=== PATIENT | female | born 1975 | race Caucasian/White ===

== ENCOUNTER 2024-07-20 07:29 | Emergency (ER) | payer OTHER, SELFPAY ==
--- NOTE | ~2024-07-20 | XR_ITS ---
Left wrist Technique: PA, oblique, lateral, and ulnar deviation views were obtained. Clinical History: Pain Findings: No acute fracture or dislocation is seen. Osseous alignment is anatomic. Joint spaces are p reserved. Soft tissues are unremarkable. Impression: Unremarkable left wrist radiographs. Reviewed, dictated and finalized at location . TRUCKER Impression: Unremarkable left wrist radiographs.
--- NOTE | ~2024-07-20 | XR_ITS ---
Left elbow Technique: AP, oblique, and lateral views were obtained. Clinical History: Pain Findings: There is displacement of fat pads, compatible elbow joint effusion. This is suspicious for underlying medical renal head fracture.. Impression: Suspected occult radial head fracture with associated elbow joint effusion. Reviewed, dictated and finalized at [facility]. ETING RESEARCH ANALYST Impression: Suspected occult radial head fracture with associated elbow joint effusion.
[2024-07-20 07:32] VITALS: BP 158/94; PULSE 86; RESP 15; TEMP 36.3; O2SAT 100
--- OUTSIDE RECORDS SUMMARY | 2024-07-20 10:02 | XMS_ITS | Patient Health Summary ---
Author Organization [facility] Address [address] [place] [address] Care Team Providers Care Script Editor Name Role Phone Akash Diop MD Primary Care Provider [phone] Todd Avila MD Unavailable Note from [facility],non-owned Affiliates and Associated Physician Practices is amultiple site organization consisting of ambulatory clinics and hospital sitesin [place], [place], [place] and [place]. This disclosure is being madepursuant to the Care Everywhere program and may not contain all information available regarding this patient. Last updated 18.[facility] Allergies * Sulfa Drugs(Palpitations) -Low Criticality Medications * Be aware that medications may not be up to date on this document. Alwaysverify current medications with the patient. * metFORMIN (GLUCOPHAGE) 500 MG tablet Take 500 mg by mouth once daily. * VITAMINS PO Take 1 Tab by mouth once daily. * famotidine (PEPCID) 20 MG tablet Take 20 mg by mouth as needed. * ALBUTEROL SULFATE IN Inhale 1 Puff by mouth as needed. * hydrocodone-acetaminophen (NORCO) 5-325 MG tablet(Started 04/06/2013) Take 1-2 Tabs by mouth every 4 hours as needed. * ibuprofen (MOTRIN) 600 MG tablet(Started 04/06/2013) Take 1 Tab by mouth every 6 hours. 1 refill left * phentermine (ADIPEX-P) 37.5 MG capsule(Started 05/06/2020) Take 37.5 mg by mouth once daily * metFORMIN (GLUCOPHAGE) 500 MG tablet Take 500 mg by mouth once daily * VIENVA 0.1-20 MG-MCG tablet(Started 02/28/2020) Take 1 tablet by mouth once daily * DULoxetine (CYMBALTA) 60 MG capsule(Started 05/15/2020) Take 60 mg by mouth once daily Active Problems Problem Noted Date Diagnosed Date Neoplasm of uncertain behavior of skin 1 Varicose veins of right lower extremity 06/06/20 20 Adiposity 11/08/2013 Asthma 11/08/2013 Atopic rhinitis 11/08/2013 Eczema 11/08/2013 Hyperlipidemia 11/08/2013 Polycystic ovaries 11/08/2013 Supervision of other high-risk 013 Low lying placenta without hemorrhage, antepartu m 03/03/2013 Immunizations * INFLUENZA VACCINE(Given 04/14/2020) * Rho D Immune Globulin(Given 04/04/2013, 04/04/2013) * TDAP (7yrs+)(Given 04/05/2013) Social History Tobacco Use Types Packs/Day Years Used Date Smoking Tobacco: Never Smokeless Tobacco: Never Tobacco Cessation:Counseling Given: Yes Alcohol Use Standard Drinks/Week Comments Yes 0 (1 standard drink = 0.6 oz pur e alcohol) socially Sex and Gender Information Value Date Recorded Sex Assigned at Not on file Gender Identity Not on file Sexual Orientation Not on file Last Filed Vital Signs Vital Sign Reading Time Taken Comments Blood Pressure 137/87 04/06/2013 7:55 AM CDT Pulse 76 04/06/2013 7:55 AM CDT Temperature 36.4 ??C (97.5 ??F) 08/11/2020 3:17 PM CS T Respiratory Rate 18 04/06/2013 7:55 AM CDT Oxygen Saturation 100% 04/05/2013 3:25 PM CDT Inhaled Oxygen Concentration - - Weight 99.8 kg (220 lb) 04/02/2013 10:04 PM CDT Height 170.2 cm (5' 7 ) 04/02/2013 10:04 PM CDT Body Mass Index 34.46 04/02/2013 10:04 PM CDT Procedures * SD TANGNTL BX SKIN SINGLE LES(Performed 08/11/2020) Performed for Neoplasm of uncertain behavior of skin * SD TANGNTL BX SKIN EA SEP ADDL(Performed 08/11/2020) Performed for Neoplasm of uncertain behavior of skin * DERMATOPATHOLOGY(Performed 08/11/2020) Performed for Neoplasm of uncertain behavior of skin * SD TANGNTL BX SKIN SINGLE LES(Performed 06/04/2020) Performed for Neoplasm of uncertain behavior of skin * SD TANGNTL BX SKIN EA SEP ADDL(Performed 06/04/2020) Performed for Neoplasm of uncertain behavior of skin * DERMATOPATHOLOGY(Performed 06/04/2020) Performed for Neoplasm of uncertain behavior of skin * SECTION (EMERGENCY)(Performed 04/23/2013) * LAB RESULTS ORDER(Performed 04/07/2013) * PATHOLOGY/CYTOLOGY REPORT ORDER(Performed 04/05/2013) * RH IMMUNE GLOBULIN WORKUP PANEL(Performed 04/04/2013) * KLEIHAUER BETKE STAIN(Performed 04/04/2013) * HGB HCT PANEL(Performed 04/04/2013) * CROSSMATCH RBC LEUKOREDUCED(Performed 04/03/2013) * CROSSMATCH RBC LEUKOREDUCED(Performed 04/03/2013) * OBTAIN CONSENT FOR TRANSFUSION(Performed 04/03/2013) * HGB HCT PANEL(Performed 04/03/2013) * CBC W AUTO DIFFERENTIAL(Performed 04/03/2013) * XR ABDOMEN KUB(Performed 04/03/2013) Performed for Low lying placenta without hemorrhage, antepartum ([facility]) * PATHOLOGY TISSUE EXAM (STL)(Performed 04/03/2013) * EPIDURAL BLOCK(Performed 04/03/2013) * URINALYSIS REFLEX TO MICROSCOPIC NO CULTURE(Performed 04/02/2013) Performed for Low lying placenta without hemorrhage, antepartum ([facility]) * TYPE + SCREEN PANEL(Performed 04/02/2013) Performed for Low lying placenta without hemorrhage, antepartum ([facility]) * ANTIBODY IDENTIFICATION(Performed 04/02/2013) Performed for Low lying placenta without hemorrhage, antepartum ([facility]) * CBC W AUTO DIFFERENTIAL(Performed 04/02/2013) Performed for Low lying placenta without hemorrhage, antepartum ([facility]) * IMAGING/RADIOLOGY/XRAY RESULTS ORDER(Performed 03/18/2013) * SONOGRAM - LIMITED(Performed 03/18/2013) Performed for Supervision of other high-risk ([facility]), Placenta previa without hemorrhage, antepartum ([facility]) * SONOGRAM - COMPLETE(Performed 03/03/2013) Performed for Placenta previa without hemorrhage, antepartum ([facility]), Supervision of other high-risk ([facility]) * URINALYSIS REFLEX MICROSCOPIC REFLEX CULTURE(Performed 11/22/2012) Performed for with one fetus (HCC) * CULTURE URINE(Performed 11/22/2012) Performed for with one fetus (HCC) * PATHOLOGY/CYTOLOGY REPORT ORDER(Performed 03/11/2012) * GROSS + MICRO EXAM(Performed 08/02/2011) * GROSS + MICRO EXAM(Performed 08/02/2011) * US OB TRANSVAGINAL DOPPLER(Performed 07/31/2011) Performed for Missed (HCC) * HEPATIC FUNCTION PANEL(Performed 05/23/2011) Performed for Abdominal pain, periumbilic * AMYLASE BLOOD(Performed 05/23/2011) Performed for Abdominal pain, periumbilic * LIPASE BLOOD(Performed 05/23/2011) Performed for Abdominal pain, periumbilic * GROSS + MICRO EXAM(Performed 08/08/2010) * GROSS + MICRO EXAM(Performed 08/08/2010) Results * SD TANGNTL BX SKIN EA SEP ADDL, SD TANGNTL BX SKIN SINGLE LES (08/11/2020 4:19 PM GEOPHYSICAL LABORATORY SUPERVISOR) Narrative Sugey Alicia MD - 08/11/2020 4:19 PM GEOPHYSICAL LABORATORY SUPERVISOR Rupal Resendez MD ? 08/11/2020 ??4:19 PM Risks, benefits and alternatives to shave biopsy were discussed with the patient. Verbal consent obtained. Locations: A) right mid upper back, B) right shoulder Ddx: Nevi Skin prep: Alcohol Anesthesia: 1% lidocaine with epinephrine Hemostasis: Aluminum Chloride Dressing and wound care discussed. Patient agrees to phone call for results and message if not available. Rupal Resendez MD Dermatology Resident, PGY-2 [facility], Department of Dermatology Sugey Alicia MD PROCEDURE/MINOR SURG ICAL ORDERABLES * DERMATOPATHOLOGY (Specimen Count = 2) (08/11/2020 12:00 AM GEOPHYSICAL LABORATORY SUPERVISOR) Only the most recent of2 resultswithin the time period is included. Case Report Dermatopathology Report ? Case: [id number] ? Authorizing Provider: ??Sugey Alicia MD ? Collected: ? 08/11/2020 12:00 AM ? Ordering Location: ? [facility] ?Received: ?08/12/2020 10:42 AM ? Dermatology ? Pathologist: ? Carlene Flores MD ? Specimens: ?? A) - Skin, right mid upper back ? B) - Skin, right shoulder ? 1 11:58 AM [facility] Final Diagnosis Specimen A. SKIN, right mid upper back: INTRADERMAL MELANOCYTIC NEVUS WITH CONGENITAL FEATURES (D22.9) Specimen B. SKIN, right shoulder: INTRADERMAL MELANOCYTIC NEVUS WITH CONGENITAL FEATURES (D22.9) 1 11:58 AM [facility] Clinical History A-B: Nevus. 11:58 AM [facility] Gross Description Specimen A: Received is one formalin filled container labeled with the patient's name and designated right mid upper back. The specimen consists of a shave biopsy measuring [id number]. Jar 0. Specimen B: Received is one formalin filled container labeled with the patient's name and designated right shoulder. The specimen consists of a shave biopsy measuring [id number]. Jar 0. 11:58 AM [facility] Microscopic Description Specimen A. SKIN, right mid upper back: There are nests of cytologically bland melanocytes within the dermis. Some of these melanocytes are concentrated around blood vessels and adnexal structures. Specimen B. SKIN, right shoulder: There are nests of cytologically bland melanocytes within the dermis. Some of these melanocytes are concentrated around blood vessels and adnexal structures. 11:58 AM [facility] Disclaimer An external and internal positive and negative controls are appropriate for the histochemical, immunohistochemical and immunofluorescence stain(s) in this case (if any), except where stated explicitly. The performance characteristics of the stain(s) cited in this report were developed and its performance characteristic determined by the Dermatopathology Laboratory at [facility], directed by Dr. Britton Flores. These tests need not be, and therefore are not, approved by the [place] Food and Drug Administration. The tests are used for clinical purposes. Billing Codes Specimen Charges Stain Charges 98872 [id number] 1 1 11:58 AM [facility] Embedded Images 11:58 AM [facility] Pathology/Cytology TISSUE SPECIMEN FROM SKIN / Unknown 08/11/2020 08/12/2020 10:42 AM GEOPHYSICAL LABORATORY SUPERVISOR Miscellaneous samples (specimen) TISSUE SPECIMEN FROM SKIN / Unknown 08/11/2020 08/12/2020 10:42 AM GEOPHYSICAL LABORATORY SUPERVISOR Sugey Alicia MD LAB - PATHOLOGY/CYTO LOGY ORDERABLES DERMATOPATHOLOGY LABORATORY [facility] - Department of Dermatology [address] [phone] * SD TANGNTL BX SKIN EA SEP ADDL, SD TANGNTL BX SKIN SINGLE LES (06/04/2020 3:09 PM GEOPHYSICAL LABORATORY SUPERVISOR) Narrative Sugey Alicia MD - 06/04/2020 3:09 PM GEOPHYSICAL LABORATORY SUPERVISOR Sugey Alicia MD ? 06/04/2020 ??3:09 PM Shave Biopsy: Pre-procedure Diagnosis: nevi Post_procedure Diagnosis: same Estimated Blood Loss: <1cc Findings: None Complications: None Specimens: 2 Verbal ??informed consent was obtained after discussing alternatives, risks including pain, bleeding, infection, recurrence and scarring. The biopsy site(s) was sterilely prepped with alcohol, which was allowed to dry completely, then locally infiltrated with 1% lidocaine with epinephrine, 3 cc total per site. A shave biopsy/biopsies was/were obtained using a Dermablade and the specimen(s) was/were sent to dermatopathology. Aluminum Chloride was used for hemostasis. Vaseline ointment and a clean dressing were applied. The patient tolerated the procedure well without complications. Verbal and written wound care instructions were given. Sugey Alicia MD Sugey Alicia MD PROCEDURE/MINOR SURG ICAL ORDERABLES * LAB RESULTS ORDER (04/07/2013 2:45 PM CDT) Narrative 04/07/2013 2:45 PM CDT Ordered by an unspecified provider. Transcriptions Document, Scanned - 04/07/2013 2:45 PM CDT Scanned Document LAB - THERAPEUTIC DR BLACK MONITORING ORDERABLES * PATHOLOGY/CYTOLOGY REPORT ORDER (04/05/2013 4:44 PM CDT) Only the most recent of2 resultswithin the time period is included. Narrative 04/05/2013 4:44 PM CDT Ordered by an unspecified provider. Transcriptions Document, Scanned - 04/05/2013 4:44 PM CDT Scanned Document LAB - PATHOLOGY/CYTO LOGY ORDERABLES * (ABNORMAL) KLEIHAUER BETKE STAIN (04/04/2013 6:38 AM CDT) Number Cells Counted 3 04/04/2013 3:42 PM CDT [facility] /Maternal Ratio 0.03728(H) <=0 04/04/2013 3:42 PM CDT [facility] Blood Bank BLOOD SPECIMEN / Unknown Lab Venipuncture / Unknown 04/04/2013 6:38 AM CDT 04/04/2013 11:57 AM CDT Narrative [facility] - 04/04/2013 3:42 PM CDT ?RHOGAM DOSAGE CHART F/A ratio ?FMH Range (ml) ? 300 ug vial dose ?0 - 0.0029 ? 0 - 14.9 ? 1 0.003 - 0.0089 ?15.0 - 44.9 ? 2 0.009 - 0.0149 ?45.0 - 74.9 ? 3 0.015 - 0.0209 ?75.0 - 104.9 ?4 0.021 - 0.0269 ? 105.0 - 134.9 ?5 0.027 - 0.0329 ? 135.0 - 164.9 ?6 0.033 - 0.0389 ? 165.0 - 194.9 ?7 0.039 - 0.0449 ? 195.0 - 224.9 ?8 0.045 - 0.0509 ? 225.0 - 254.9 ?9 0.051 - 0.0569 ? 255.0 - 284.9 ? 10 0.057 - 0.0629 ? 285.0 - 314.9 ? 11 0.063 - 0.0689 ? 315.0 - 344.9 ? 12 0.069 - 0.0749 ? 345.0 - 374.9 ? 13 0.075 - 0.0809 ? 375.0 - 404.9 ? 14 0.081 - 0.0869 ? 405.0 - 434.9 ? 15 0.087 - 0.0929 ? 435.0 - 464.9 ? 16 0.093 - 0.0989 ? 465.0 - 494.5 ? 17 0.099 - 0.100 ?495.0 - 500.0 ? 18 Please note: No Rhogam is recommended for mothers who are Rh positive. Jose A Hirsch MD LAB - HEMATOLOGY ORD ERABLES [facility] [address] [place], [place] [id number] * RH IMMUNE GLOBULIN WORKUP PANEL (04/04/2013 6:38 AM CDT) [facility] # Rhlg vials needed See KB results. May require multiple vials. 04/04/2013 11:55 AM CDT [facility] Blood Bank BLOOD SPECIMEN / Unknown Lab Venipuncture / Unknown 04/04/2013 6:38 AM CDT 04/04/2013 6:55 AM CDT Jose A Hirsch MD LAB - BLOOD BANK ORD ERABLES [facility] * SCREEN (04/04/2013 6:38 AM CDT) Blood Bank BLOOD SPECIMEN / Unknown 04/04/2013 6:38 AM CDT 04/04/2013 6:55 AM CDT Jose A Hirsch MD LAB - BLOOD BANK ORD ERABLES [facility] * (ABNORMAL) HGB HCT PANEL (04/04/2013 6:38 AM CDT) Only the most recent of2 resultswithin the time period is included. Hemoglobin 7.9(L) 12.0 - 15.6 g/dL 04/04/2013 7:00 AM CDT [facility] Hematocrit 24.0(L) 35.9 - 45.5 % 04/04/2013 7:00 AM CDT [facility] Blood BLOOD SPECIMEN / Unknown Lab Venipuncture / Unknown 04/04/2013 6:38 AM CDT 04/04/2013 6:55 AM CDT Jose A Hirsch MD LAB - HEMATOLOGY ORD ERABLES [facility] [address] [place] [address] * TRANSFUSE RED BLOOD CELL UNIT(S) (04/04/2013 1:00 AM CDT) Jose A Hirsch MD NURSING - BLOOD PROD TRANSFUSION * TRANSFUSE RED BLOOD CELL UNIT(S) (04/03/2013 10:02 PM CDT) Jose A Hirsch MD NURSING - BLOOD PROD TRANSFUSION * CROSSMATCH RBC (04/03/2013 6:36 PM CDT) Only the most recent of2 resultswithin the time period is included. Unit Donor # [id number] -Y 04/03/2013 11:58 PM CDT [facility] Product Code E0424 04/03/2013 11:58 PM CDT [facility] Unit Description E0424 RBC, LR, -5 04/03/2013 11:58 PM CDT [facility] ABO Donor Type B 04/03/2013 11:58 PM CDT [facility] Rh Type Unit NEG 04/03/2013 11:58 PM CDT [facility] Crossmatch Interpretation Compatible 04/03/2013 11:58 PM CDT [facility] Unit Status Transfused Unit 04/03/2013 11:58 PM CDT [facility] Blood Bank BLOOD SPECIMEN / Unknown 04/03/2013 6:36 PM CDT 04/03/2013 6:46 PM CDT Jose A Hirsch MD LAB - BLOOD BANK ORD ERABLES [facility] * (ABNORMAL) CBC W AUTO DIFFERENTIAL (04/03/2013 12:08 PM CDT) Only the most recent of2 resultswithin the time period is included. WBC 11.6(H) 4.4 - 10.7 x10^9/L 04/03/2013 12:18 PM CDT [facility] RBC 2.87(L) 3.80 - 5.20 x10^12/L 04/03/2013 12:18 PM CDT [facility] Hemoglobin 7.5(L) 12.0 - 15.6 g/dL 04/03/2013 12:18 PM CDT [facility] Hematocrit 23.2(L) 35.9 - 45.5 % 04/03/2013 12:18 PM CDT [facility] MCV 80.8 80.7 - 98.3 fl 04/03/2013 12:18 PM CDT [facility] MCH 26.1(L) 26.7 - 34.0 pg 04/03/2013 12:18 PM CDT [facility] MCHC 32.3 30.8 - 35.9 gm/dL 04/03/2013 12:18 PM CDT [facility] Platelet Count 204 153 - 416 x10^9/L 04/03/2013 12:18 PM CDT [facility] RDW-CV 14.3 12.1 - 14.9 % 04/03/2013 12:18 PM CDT [facility] MPV 10.5 9.4 - 12.9 fl 04/03/2013 12:18 PM CDT [facility] Neutrophils % 84.4(H) 44.0 - 73.0 % 04/03/2013 12:18 PM CDT [facility] Lymphocytes % 7.5(L) 20.0 - 43.0 % 04/03/2013 12:18 PM CDT [facility] Monocytes % 7.5 5.0 - 13.0 % 04/03/2013 12:18 PM CDT [facility] Eosinophils % 0.1 0.0 - 6.0 % 04/03/2013 12:18 PM CDT [facility] Basophils % 0.2 0.0 - 2.0 % 04/03/2013 12:18 PM CDT [facility] Immature Granulocytes 0.3 0 - 1 % 04/03/2013 12:18 PM CDT [facility] Neutrophil Absolute 9.79(H) 2.01 - 7.14 x10^9/L 04/03/2013 12:18 PM CDT [facility] Lymphocytes Absolute 0.87(L) 1.07 - 3.94 x10^9/L 04/03/2013 12:18 PM CDT [facility] Monocytes Absolute 0.87 0.26 - 1.07 x10^9/L 04/03/2013 12:18 PM CDT [facility] Eosinophils Absolute 0.01 0 - 0.47 x10^9/L 04/03/2013 12:18 PM CDT [facility] Basophils Absolute 0.02 0 - 0.08 x10^9/L 04/03/2013 12:18 PM CDT [facility] nRBC Auto 0.0 /100 WBC 04/03/2013 12:18 PM CDT [facility] Blood BLOOD SPECIMEN / Unknown Lab Venipuncture / Unknown 04/03/2013 12:08 PM CDT 04/03/2013 12:16 PM CDT Soren Lopez MD LAB - HEMATOLOGY ORD ERABLES [facility] [address] [place] [place] [address] * XR ABDOMEN 1 VW (04/03/2013 8:27 AM CDT) Anatomical Region Laterality Modality Abdomen Radiographic Lindsay ging 04/03/2013 10:5 2 AM CDT Narrative 04/03/2013 1:17 PM CDT ABDOMEN (KUB) INDICATION: ??Abdominal pain, postop. FINDINGS: Frontal view of the abdomen without prior shows surgical clips overlying the lower pelvis. The bowel gas pattern is not obstructed. There is a small caliber lead superimposing the lower stomach and pelvis. There is otherwise no radiopaque density to suggest a foreign body. Edited by Vee Sotelo on 04/03/2013 10:55 AM Procedure Note Herber Mendoza MD - 04/03/2013 ABDOMEN (KUB) INDICATION: Abdominal pain, postop. FINDINGS: Frontal view of the abdomen without prior shows surgical clips overlying the lower pelvis. The bowel gas pattern is not obstructed. There is a small caliber lead superimposing the lower stomach and pelvis. There is otherwise no radiopaque density to suggest a foreign body. Edited by Vee Sotelo on 04/03/2013 10:55 AM Jose A Hirsch MD DIAGNOSTIC IMAGING O RDERABLES * GROSS + MICRO EXAM (STL) (04/03/2013 7:53 AM CDT) Case Report Surgical Pathology Report ? Case: [id number] ? -------- Authorizing Provider: ??Jose A Hirsch MD ? Ordering Provider: ?? Jose A Hirsch MD ? Ordering Location: ? [facility] ? Collected: ? 04/03/2013 ??7:53 AM ? Pathologist: ? Rob Birch MD ? Received: ?04/04/2013 ??7:47 AM ?Signed Out: ?04/07/2013 ??2:24 PM (Final) ? Specimen: ?Placenta ? 04/07/2013 2:24 PM T [facility] Final Diagnosis A. Placenta, 39-3/7 weeks, delivery: - Three vessel umbilical cord with very early umbilical phlebitis. - membranes with no evidence of chorioamnionitis. - Placental parenchyma with mature chorionic villi. KVNG/zoe 04/07/2013 2:24 PM [facility] Clinical History 39 3/7 weeks gestation, possible low-lying placenta. 04/07/2013 2:24 PM T [facility] Gross Description Received in formalin in a container labeled Clover Paulino, placenta . ??The container holds a 577.7 gm, 23.5 x 18 x 3 cm siu discoid placenta with attached membranes and umbilical cord. ??The membranes rupture marginally and are mccabe, semitransparent. ??The umbilical cord inserts eccentrically 8.4 cm from the placental disc margin and measures 9 cm in length and up to 1.5 cm in diameter. ??The umbilical cord contains three vessels. ??The surface is purple-mccabe. ??The vessels arborize in a normal pattern and are unremarkable. ??The maternal surface has well developed intact lobular cotyledons. ??Serial section shows red-brown parenchyma. At the placental disc margin is a 9 x 5.2 x 0.3 succenturiate lobe. Manager Discovery sections are submitted as follows: ??A1 - Membranes and umbilical cord, A2 - surface, A3 - Maternal surface. ?? DYT/scs 04/07/2013 2:24 PM CDT [facility] Microscopic Description Histologic examination of the sections of the umbilical cord shows a three vessel umbilical cord with early neutrophilic margination and superficial permeation of the inner most aspect of the umbilical vein (very early umbilical phlebitis). Examination of the membranes shows intact amnion overlying intact chorion with no significant evidence of chorioamnionitis. Examination of the vessels at the chorionic plate shows them to be patent and free of physiologic thrombi with no significant evidence of vasculitis. There is a moderate amount of subchorionic fibrin disposition with agglutination and entrapment of adjacent chorionic villi. Examination of the placental parenchyma shows mature chorionic villi with appropriate capillarization and syncytial knot formation and scattered perivillous fibrin deposits. KVNG/zoe 04/07/2013 2:24 PM CDT [facility] Synoptic Report 04/07/2013 2:24 PM T [facility] Pathology/Cytolo gy ENTIRE PLACENTA / Unknown 04/03/2013 7:53 AM CDT 04/04/2013 7:47 AM CDT Jose A Hirsch MD LAB - PATHOLOGY/CYTO LOGY ORDERABLES [facility] [address] [place] [address] * ANESTHESIA BLOCK PERF (04/03/2013 7:22 AM CDT) Narrative Paulina Clay CRNA - 04/03/2013 7:22 AM CDT Paulina Clay CRNA ? 04/03/2013 ??7:22 AM Epidural . ?? Location: L3-4 Preanesthetic Checklist Completed: patient identified, IV checked, site marked, risks and benefits discussed, surgical consent, monitors and equipment checked, pre-op evaluation, timeout performed and questions answered / anesthesia plan accepted ?? Epidural . ?? Position for procedure: ??sitting Prep: ??sterile gloves, cap, mask, sterile field established, kit and supplies assembled on sterile field and skin prepped with Betadine. ?? Needle: ??18 G Tuohy ?? Location: L3-4 Injection technique: catheter, saline and loss of resistance Additional response: ??Negative test dose Response to Block: ?? Anesthesia level achieved: ??T8 Injection made incrementally with aspirations every 5 mL. Anesthesia level achieved: ??[id number] response: ??Negative test dose Patient Care after Block: Instructions to patient: ?? Patient position: left lateral decubitus Additional Notes: Procedure Note Paulina Clay CRNA - 04/03/2013 7:21 AM CDT Epidural . Location: L3-4 Preanesthetic Checklist Completed: patient identified, IV checked, site marked, risks and benefitsdiscussed, surgical consent, monitors and equipment checked, pre-opevaluation, timeout performed and questions answered / anesthesia planaccepted Epidural . Position for procedure: sitting Prep: sterile gloves, cap, mask, sterile field established, kit andsupplies assembled on sterile field and skin prepped with Betadine. Needle: 18 G Tuohy Location: L3-4 Injection technique: catheter, saline and loss of resistance Additional response: Negative test dose Response to Block: Anesthesia level achieved: T8 Injection made incrementally with aspirations every 5 mL. Anesthesia level achieved: [id number] response: Negative test dose Patient Care after Block: Instructions to patient: Patient position: left lateral decubitus Additional Notes: Paulina Clay APRN-EDILBERTO GENERAL ANESTH ESIA ORDERABLES * (ABNORMAL) URINALYSIS ROUTINE AUTO (04/02/2013 10:29 PM CDT) Color UA Yellow Straw, Yellow, Dark Yellow 04/02/2013 11:01 PM CDT [facility] Clarity UA Clear 04/02/2013 11:01 PM T [facility] Specific [place] UA 1.024 1.005 - 1.030 04/02/2013 11:01 PM [facility] pH UA 6.5 5.0 - 8.0 04/02/2013 11:01 PM [facility] Protein UA Negative Negative 04/02/2013 11:01 PM [facility] Blood UA Negative Negative 04/02/2013 11:01 PM [facility] Leukocyte UA 2+(A) Negative 04/02/2013 11:01 PM [facility] Nitrite UA Negative Negative 04/02/2013 11:01 PM [facility] Glucose UA 3+(A) Negative 04/02/2013 11:01 PM [facility] Ketone UA Negative Negative 04/02/2013 11:01 PM [facility] Bilirubin UA Negative Negative 04/02/2013 11:01 PM [facility] Urobilinogen UA 0.2 0.1 - 1.0 EU/dL 04/02/2013 11:01 PM [facility] WBC UA Auto 20-50(A) 0-2, 2-5 #/hpf 04/02/2013 11:01 PM [facility] RBC UA Auto 2-5 0-2, 2-5 #/hpf 04/02/2013 11:01 PM [facility] Epithelial Cell UA Auto 2-5 0-2, 2-5 #/hpf 04/02/2013 11:01 PM [facility] Bacteria UA Auto 2+(A) None seen 04/02/20 13 11:01 PM [facility] Hyaline Casts UA Auto 2-5(A) 0 - 2 #/lpf 04/02/2013 11:01 PM [facility] Urine URINE SPECIMEN OBTAINED BY CLEAN CATCH PROCEDURE / Unknown 04/02/2013 10:29 PM CDT 04/02/2013 10:49 PM T Jose A Hirsch MD LAB - URINALYSIS ORD ERABLES [facility] [address] [place] [address] * TYPE + SCREEN PANEL (04/02/2013 10:29 PM CDT) ABO B 04/03/2013 12:06 AM [facility] Rh Type Negative 04/03/2013 12:06 AM CDT [facility] Comment:Historical blood typ e on record. Antibody Screen Positive 04/03/2013 12:06 AM CDT [facility] Blood Bank BLOOD SPECIMEN / Unknown Venipuncture / Unknown 04/02/2013 10:29 PM CDT 04/02/2013 10:49 PM CDT Jose A Hirsch MD LAB - BLOOD BANK ORD ERABLES [facility] * ANTIBODY IDENTIFICATION (04/02/2013 10:29 PM CDT) Antibody Identification Passive D Antibody, Patient Received RHIG 04/03/2013 12:09 AM CDT [facility] Blood Bank BLOOD SPECIMEN / Unknown 04/02/2013 10:29 PM CDT 04/02/2013 10:49 PM CDT Jose A Hirsch MD LAB - BLOOD BANK ORD ERABLES [facility] * IMAGING/RADIOLOGY/XRAY RESULTS ORDER (03/18/2013 7:31 PM CDT) Anatomical Region Laterality Modality Other Narrative 03/18/2013 7:31 PM CDT Ordered by an unspecified provider. Transcriptions Document, Scanned - 03/18/2013 7:31 PM CDT Scanned Document IMAGING * SONOGRAM - LIMITED (03/18/2013 9:13 AM CDT) Anatomical Region Laterality Modality Other 03/18/2013 9:13 AM CDT Narrative 03/18/2013 10:08 AM CDT ? [facility] ? [facility] ?Limited OB Ultrasound ? Pat. Name: ?ZACHERY PAULINOSTEPHEN Nassar. No: ?[id number] Study Date: ?? 03/18/2013 ??9:13am , Age: ? 1975, 37 Pregnancies: ?? 4, Para 2, Ab 1 LMP: ?07/01/2012 GA by LMP: ?37w1d GA by 1st: ?37w1d GA Selected: ??37w1d (LMP) MANUELITO: ?04/07/2013 Referring MD: JOSE A HIRSCH MD Physician Scientist: ??Arjun Faye RDMS ICD9: ? 656.73 CPT4: ? 47713, 34593 Hist/Ind: ? R/O Placenta Previa Cervical Length: ??5.0 cm Heart Rate: 161.0 bpm Amniotic Fluid Index: 16.4 (07.5-24.4) CLINICAL SUMMARY Study Number: 2 A siu fetus is identified in cephalic presentation. ??The placenta is posterior low lying placenta ., Grade 2. The leading edge of this posterior placenta is 1.4 cm away from internal os. The amniotic fluid volume is within normal limits. ??No major malformations are seen. TRANSVAGINAL ULTRASOUND: ?? The transvaginal cervical length measures 5.0 cm with no funneling identified. ??No change is seen with fundal pressure. ??The leading edge of the placenta is 1.45 cm from the internal os. IMPRESSION: ?? Single IUP at 37w1d. ?? Normal amniotic fluid volume. Placental location: ??Posterior, low lying. No major malformations are seen today within the limitations of ultrasound. RECOMMEND: ?? Follow up ultrasound as clinically indicated. Thank you for allowing us the opportunity to care for your patient. Raphael Syed MD <Electronic Signature> ??03/18/2013 10:08am Jose A Hirsch MD [facility] ORDERABLES * SONOGRAM - COMPLETE (03/03/2013 1:41 PM CDT) Anatomical Region Laterality Modality Other 03/03/2013 1:41 PM CDT Narrative 03/03/2013 2:17 PM CDT ? [facility] ? [facility] ?Limited OB Ultrasound ? Pat. Name: ?CLOVER PAULINO. No: ?[id number] Study Date: ?? 03/03/2013 ??1:41pm , Age: ? 1975, 37 Pregnancies: ?? 4, Para 2, Ab 1 LMP: ?07/01/2012 GA by LMP: ?35w0d GA by US: ? 35w2d GA Selected: ??35w0d (LMP) MANUELITO: ?04/07/2013 Referring MD: JOSE A HIRSCH MD Physician Scientist: ??Arjun Faye, [facility] ICD9: ? 659.63, 656.73 CPT4: ? 33065, 99439 Hist/Ind: ? Advanced Maternal Age, ?R/O Placenta Previa MEASUREMENTS & AGE ? GROWTH EVALUATION Measurement ??GA ? Range ? Srce %for GA Ratios ----- ---- ------- BPD ??8.8 cm 35w3d (39k5s-67c5x) Hadl BPD 56% FL/BPD 0.74 (0.71 - 0.87) HC ??34.0 cm 39w1d (44t9u-65g2b) Hadl HC ??>95 FL/AC ??0.21 (0.20 - 0.24) AC ??31.7 cm 35w4d (02q4m-44j3m) Hadl AC ??59% HC/AC ??1.07 (0.93 - 1.12) FL ?? 6.5 cm 33w4d (67k1x-11g7q) Hadl FL ??29% CI ? 0.70 (0.70 - 0.86* HL ?? 5.6 cm 32w4d (12f6v-06m3k) Santana HL ??9% GA for sonogram 35w2d (31l9z-57m2j) ?? Weight Estimate: based on (HL,BPD,HC,AC,FL) Avg ? Weight: 2668 gm (2504-6215) Hadlo ? : 5lbs, 14oz ? Normal: 2430 gm (1870- 3090) Brenn ? Wt% ? 64% for 35.0 wks Cervical Length: ??5.0 cm Heart Rate: 149.0 bpm Amniotic Fluid Index: 18.4 (07.9-24.9) CLINICAL SUMMARY Study Number: ??1 A siu fetus is identified in cephalic presentation. ??The measurements today are consistent with menstrual dates.(H/C is > 95 %) ??The MANUELITO selected is based on her LMP and a prior ultrasound examination. ??The amniotic fluid volume is within normal limits. ?? The placenta is posterior, low lying, Grade 1. ??The leading edge of this posterior placenta is 1.4 cm away from internal os. ??No major malformations are seen. ??The patient was advised that ultrasound does not allow detection of all structural or chromosomal abnormalities. ?? TRANSVAGINAL ULTRASOUND: ?? The transvaginal cervical length measures 5.0 cm with no funneling identified. ??No change is seen with fundal pressure. ??The leading edge of the placenta is 1.4 cm from the internal os. IMPRESSION: ?? Single IUP at 35w0d. ?? Normal amniotic fluid volume. Appropriate growth.(H/C is > 95 %) Placental location: ??Posterior, low lying. No major malformations are seen today within the limitations of ultrasound. Reassuring cervical length. RECOMMEND: ?? Follow up ultrasound as clinically indicated. Thank you for allowing us the opportunity to care for your patient. patient. Raphael MD Kunal <Electronic Signature> ??03/03/2013 02:17pm Jose A Hirsch MD [facility] ORDERABLES * (ABNORMAL) URINALYSIS ROUTINE W/REFLEX TO CULTURE (11/22/2012 1:56 AM CDT) Color UA Yellow Straw, Yellow, Dark Yellow 11/22/2012 2:10 AM CDT [facility] Clarity UA Cloudy 11/22/2012 2:10 AM CDT [facility] Specific [place] UA 1.030 1.005 - 1.030 11/22/2012 2:10 AM [facility] pH UA 6.0 5.0 - 8.0 11/22/2012 2:10 AM CDT [facility] Protein UA Negative Negative 11/22/2012 2:10 AM CDT [facility] Blood UA Negative Negative 11/22/2012 2:10 AM T [facility] Leukocyte UA 2+(A) Negative 11/22/2012 2:10 AM CDT [facility] Nitrite UA Negative Negative 11/22/2012 2:10 AM CDT [facility] Glucose UA Negative Negative 11/22/2012 2:10 AM CDT [facility] Ketone UA Negative Negative 11/22/2012 2:10 AM CDT [facility] Bilirubin UA Negative Negative 11/22/2012 2:10 AM T [facility] Urobilinogen UA 0.2 0.1 - 1.0 EU/dL 11/22/2012 2:10 AM CDT [facility] WBC UA Auto 50-100(A) 0-2, 2-5 #/hpf 11/22/2012 2:10 AM CDT [facility] RBC UA Auto 5-10(A) 0-2, 2-5 #/hpf 11/22/2012 2:10 AM CDT [facility] Epithelial Cell UA Auto 2-5 0-2, 2-5 #/hpf 11/22/2012 2:10 AM CDT [facility] Bacteria UA Auto 2+(A) None seen 11/23/19 13 2:10 AM CDT [facility] Hyaline Casts UA Auto 5-10(A) 0 - 2 #/lpf 11/22/2012 2:10 AM CDT [facility] Reflex Status Culture to follow 11/22/2012 2:10 AM CDT [facility] Urine specimen (specimen) URINE SPECIMEN OBTAINED BY CLEAN CATCH PROCEDURE / Unknown Collection / Unknown 11/22/2012 1:56 AM CDT 11/22/2012 2:01 AM CDT Ivis Mayers MD LAB - URINALYSIS ORDERABLES [facility] [address] [address] * CULTURE URINE (11/22/2012 1:56 AM CDT) Culture >10,000 CFU/mL multiple bacterial morphotypes present. Suggest recollection. 11/23/2012 10:56 AM CDT [facility] Urine specimen (specimen) URINE SPECIMEN OBTAINED BY CLEAN CATCH PROCEDURE / Unknown 11/22/2012 1:56 AM CDT 11/22/2012 2:01 AM CDT Ivis Mayers MD LAB - MICROBIOLO GY ORDERABLES [facility] [address] [place] [address], [facility] * GROSS + MICRO EXAM (08/02/2011 5:55 AM GEOPHYSICAL LABORATORY SUPERVISOR) Only the most recent of4 resultswithin the time period is included. Result CASE NUMBER [id number] Comment: ORDERING PHYSICIAN ??JOSE A HIRSCH SPECIMEN TYPE ?Products of Concept DATE OF PROCEDURE ?08/02/2011 SPECIMEN LABELED ? Products of conception PRE-OP DIAGNOSIS ? Missed AB GROSS DESCRIPTION ? GROSS DESCRIPTION The specimen is received in formalin labeled products of conception patient Clover Paulino, and consists of multiple pink/mccabe and burgundy/red tissue fragments measuring 6.5 x 4.2 x 1.5 cm in aggregate. There is no tissue identified. Amnion is present. Manager Discovery sections are submitted in cassettes A1 and A2. Dictated by ?DYT MICROSCOPIC DESCRIPTION The histologic sections show chorionic villi, gestational endometrium and implantation site. tissue is not identified. Many of the chorionic villi are enlarged and edematous with central cisterns. Areas of trophoblastic proliferation are also present. These features raise are consistent with a molar . However, there is a second population of smaller fibrotic villi. Therefore the block was sent off for p57 immunostain to discriminate between partial and complete molar . p57 immunostain highlights the intermediate trophoblast. This finding is consistent with a partial mole as staining would be expected to be absent in a complete molar . The preliminary diagnosis was communicated to Dr. Jose A Hirsch on 08/07/11 at 3 26 pm. DIAGNOSIS Uterus, products of conception, extraction - ?Partial mole (see description) Dictated by ?? Cassy Marcial M.D. CPT ?? 00731 ??95340 Comfort Station Attendant ? KRYSTLE URIARTE Electronically Signed By ? CASSY MARCIAL MISCELLANEOUS SAMPLES / Unknown 08/02/2011 5:55 AM GEOPHYSICAL LABORATORY SUPERVISOR 08/02/2011 12:06 PM GEOPHYSICAL LABORATORY SUPERVISOR Historical Provider LAB - PATHOLOGY/C YTOLOGY ORDERABLES * US OB < 14 WKS W/TRANSVAG AND DOPPLER (07/31/2011 11:08 AM GEOPHYSICAL LABORATORY SUPERVISOR) Anatomical Region Laterality Modality Ultrasound 07/31/2011 1:46 PM GEOPHYSICAL LABORATORY SUPERVISOR Impressions 07/31/2011 3:36 PM GEOPHYSICAL LABORATORY SUPERVISOR An intrauterine gestational sac is visible but no motion and no heart motion can be seen in the pole. The age estimate by ultrasound is 6 weeks 5 days, which is less than that based on the LMP. A small cyst is visible in the right ovary. A notification was sent to the following physicians via the [employer] service. JOSE A HIRSCH 1:51:24 PM ??07/31/2011 [employer] ??message Id: [id number] Narrative 07/31/2011 3:36 PM GEOPHYSICAL LABORATORY SUPERVISOR PELVIC ULTRASOUND OB ??LIMITED INDICATION: ??No heart motion detected on physical examination at the doctor's office earlier today. demise. TECHNIQUE: Sonographic images through the pelvis were obtained with the transabdominal and transvaginal probe. ?? COMPARISON: ?? None available.. FINDINGS: ?? TRANSABDOMINAL: ??An intrauterine fluid collection is visible. No free fluid can be seen in the pelvis. The ovaries are better visualized on the transvaginal images. TRANSVAGINAL: ??An intrauterine fluid collection is visible. A pole can be visualized and this measures an average of 0.76 cm. The age estimate is 6 weeks 5 days. However, no motion or heart motion could be seen. The patient estimates her LMP as May 23, 2011. The gestational age by LMP estimates should be 9 weeks 6 days. The gestational sac is flattened and has a bilobed shape. The right ovary measures 2.81 x 2.74 x 2.71 cm. The left ovary measures 2.44 x 2.76 x 2.69 cm. A 1.61 x 1.96 x 2.03 cm cyst is visible in the right ovary. With color Doppler imaging, vascular flow signal can be seen in the ovaries bilaterally. Procedure Note Lexx Rodrigues MD - 07/31/2011 PELVIC ULTRASOUND OB LIMITED INDICATION: No heart motion detected on physical examination at the doctor's office earlier today. demise. TECHNIQUE: Sonographic images through the pelvis were obtained with the transabdominal and transvaginal probe. COMPARISON: None available.. FINDINGS: TRANSABDOMINAL: An intrauterine fluid collection is visible. No free fluid can be seen in the pelvis. The ovaries are better visualized on the transvaginal images. TRANSVAGINAL: An intrauterine fluid collection is visible. A pole can be visualized and this measures an average of 0.76 cm. The age estimate is 6 weeks 5 days. However, no motion or heart motion could be seen. The patient estimates her LMP as May 23, 2011. The gestational age by LMP estimates should be 9 weeks 6 days. The gestational sac is flattened and has a bilobed shape. The right ovary measures 2.81 x 2.74 x 2.71 cm. The left ovary measures 2.44 x 2.76 x 2.69 cm. A 1.61 x 1.96 x 2.03 cm cyst is visible in the right ovary. With color Doppler imaging, vascular flow signal can be seen in the ovaries bilaterally. IMPRESSION An intrauterine gestational sac is visible but no motion and no heart motion can be seen in the pole. The age estimate by ultrasound is 6 weeks 5 days, which is less than that based on the LMP. A small cyst is visible in the right ovary. A notification was sent to the following physicians via the [employer] service. JOSE A HIRSCH 1:51:24 PM 07/31/2011 [employer] message Id: [id number] Jose A Hirsch MD ORDERABLES * HEPATIC FUNCTION PANEL (05/23/2011 3:26 PM GEOPHYSICAL LABORATORY SUPERVISOR) Bilirubin Total 0.3 0.2 - 1.0 mg/dl [facility] Bilirubin Direct < 0.1 0.0 - 0.3 mg/dl [facility] Alkaline Phosphatase 50 38 - 126 U/L [facility] AST 5 5.0 - 40.0 U/L [facility] ALT 15 12.0 - 78.0 U/L [facility] Protein Total 7.9 6.4 - 8.2 gm/dl [facility] Albumin 4.1 3.4 - 5.0 gm/dl [facility] Blood specimen (specimen) BLOOD SPECIMEN / Unknown 05/23/2011 3:26 PM GEOPHYSICAL LABORATORY SUPERVISOR 05/23/2011 3:32 PM GEOPHYSICAL LABORATORY SUPERVISOR Karel Rawls MD LAB - CHEMISTRY O RDERABLES [facility] [address] [place] [address] * LIPASE BLOOD (05/23/2011 3:26 PM GEOPHYSICAL LABORATORY SUPERVISOR) Lipase 295 73 - 393 U/L [facility] Blood specimen (specimen) BLOOD SPECIMEN / Unknown 05/23/2011 3:26 PM GEOPHYSICAL LABORATORY SUPERVISOR 05/23/2011 3:32 PM GEOPHYSICAL LABORATORY SUPERVISOR Karel Rawls MD LAB - CHEMISTRY O RDERABLES Performing Organization Address [facility]/ZIP Co de Phone Number [facility] [address] [place] [address] * AMYLASE BLOOD (05/23/2011 3:26 PM GEOPHYSICAL LABORATORY SUPERVISOR) Amylase 42 15 - 115 U/L [facility] Blood specimen (specimen) BLOOD SPECIMEN / Unknown 05/23/2011 3:26 PM GEOPHYSICAL LABORATORY SUPERVISOR 05/23/2011 3:32 PM GEOPHYSICAL LABORATORY SUPERVISOR Karel Rawls MD LAB - CHEMISTRY O RDERABLES Performing Organization Address [facility]/ZIP Co de Phone Number [facility] [address] [place] [address] Care Teams Script Editor Relationship Specialty Start Date End Date Akash Diop MD [address] [facility] [address] [place] [address] PCP - General 05/18/20 Todd Avila MD [address] [place] [address] Family Medicine 05/18/20
--- OUTSIDE RECORDS SUMMARY | 2024-07-20 10:02 | XMS_ITS | Clinical Summary ---
Author Organization [email or web address] Address [address] [place] [address] Care Team Providers Care Stretcher Drier Operator Name Role Phone Akash Diop MD Primary Care Provider [phone] Todd Avila MD Unavailable Source Comments [facility],non-owned Affiliates and Associated Physician Practices is amultiple site organization consisting of ambulatory clinics and hospital sitesin [place], [place], [place] and [place]. This disclosure is being madepursuant to the Care Everywhere program and may not contain all information available regarding this patient. Last updated 18.[facility] Allergies Active Allergy Reactions Criticality Noted Date Comments Sulfa Drugs Palpitations Low 06/02/2020 Medications * Be aware that medications may not be up to date on this document. Alwaysverify current medications with the patient. Medication Sig Dispensed Refills Start Date End Date Status metFORMIN (GLUCOPHAGE) 500 MG tablet Take 500 mg by mouth once daily. Active VITAMINS PO Take 1 Tab by mouth once daily. Active famotidine (PEPCID) 20 MG tablet Take 20 mg by mouth as needed. Active ALBUTEROL SULFATE IN Inhale 1 Puff by mouth as needed. Active hydrocodone-acetamin ophen (NORCO) 5-325 MG tablet Take 1-2 Tabs by mouth every 4 hours as needed. 40 Tab 0 04/06/2013 Active Additional Information Patient not taking.Reported on 08/11/2020 ibuprofen (MOTRIN) 600 MG tablet Take 1 Tab by mouth every 6 hours. 30 Tab 1 04/06/2013 Active Additional Information Patient not taking.Reported on 08/11/2020 phentermine (ADIPEX-P) 37.5 MG capsule Take 37.5 mg by mouth once daily 05/06/2020 Active metFORMIN (GLUCOPHAGE) 500 MG tablet Take 500 mg by mouth once daily Active VIENVA 0.1-20 MG-MCG tablet Take 1 tablet by mouth once daily 02/28/2020 Active DULoxetine (CYMBALTA) 60 MG capsule Take 60 mg by mouth once daily 05/15/2020 Active Active Problems Problem Noted Date Diagnosed Date Neoplasm of uncertain behavior of skin Assessment & Plan (08/11/2020 4:17 PM FLOTATION OPERATOR): - Locations: A) right mid upper back, B) right shoulder - Ddx: Nevi - Shave Biopsy (see procedure note) - Post-biopsy handout given - Wound care instructions reviewed - Will call patient with biopsy results. If intervention is indicated, will make arrangements at that time Varicose veins of right lower extremity 06/06/20 20 Adiposity 11/08/2013 Overview (08/11/2020): OBESITY NOS Asthma 11/08/2013 Overview (08/11/2020): Asthma Atopic rhinitis 11/08/2013 Overview (08/11/2020): ALLERGIC RHINITIS NOS Eczema 11/08/2013 Overview (08/11/2020): Eczema Hyperlipidemia 11/08/2013 Overview (08/11/2020): HYPERLIPIDEMIA NEC/NOS Polycystic ovaries 11/08/2013 Overview (08/11/2020): Polycystic Ovarian Syndrome Supervision of other high-risk 013 Overview (05/02/2015): Low lying placenta without hemorrhage, antepartu m 03/03/2013 Immunizations Name Administration Dates Next Due INFLUENZA VACCINE 04/14/2020 Rho D Immune Globulin 04/04/2013,04/04/2013 TDAP (7yrs+) 04/05/2013 Family History Medical History Relation Name Comments None Known Brother Cancer Father bladder Stroke Father None Known Maternal Aunt Cancer Maternal Grandfather pancrea tic Heart Disease Maternal Grandmother None Known Maternal Uncle Endometriosis Mother None Known Other None Known Paternal Aunt Heart Disease Paternal Grandfather None Known Paternal Grandmother None Known Paternal Uncle None Known Sister Asthma Neg Hx CVA Neg Hx Cancer - Breast Neg Hx Cancer - Other Neg Hx Cancer - Skin, Melanoma Neg Hx Cancer - Skin, Non Melanoma Neg Hx Eczema Neg Hx Hemophilia Neg Hx Psoriasis Neg Hx Relation Name Status Comments Brother Father Alive Maternal Aunt Maternal Grandfather Maternal Grandmother Maternal Uncle Mother Alive Other Paternal Aunt Paternal Grandfather Paternal Grandmother Paternal Uncle Sister Social History Tobacco Use Types Packs/Day Years [...] Mass Index 34.46 04/02/2013 10:04 PM CDT Plan of Treatment Health Maintenance Due Date Last Done Comments COLOGUARD (AGES 45-75) - COL ON CA SCREENING 1975 COLON MONITORING 1975 COLONOSCOPY - COLON CA SCREENING 1976 CT COLONOGRAPHY - COLON CA SCREENING 1975 Colorectal Cancer Screening 1975 FIT - COLON CA SCREENING 1975 FLEX SIG - COLON CA SCREENING 1975 LIPID TESTING 1975 MAMMOGRAM 1975 PAP SMEAR 1975 HIV SCREENING 12/05/1991 HEPATITIS C SCREENING 11/30/1994 HEPATITIS B VACCINE (1 of 3 - 19+ 3-dose series) 12/05/1995 PNEUMOCOCCAL VACCINE (1 of 2 - PCV) 12/05/1995 DTAP/TDAP/TD VACCINES (2 - T d or Tdap) 04/05/2023 04/05/2013 COVID-19 VACCINE (3 - 2023-2 5 season) 2024 10/09/2020, 09/17/2020 INFLUENZA VACCINE (#1) 2024 04/14/2020 DEPRESSION SCREENING 06/25/2024 ZOSTER VACCINE (1 of 2) 2026 HIB VACCINE Aged Out No longer eligi ble based on patient's age to complete this topic HPV VACCINE Aged Out No longer eligi ble based on patient's age to complete this topic MENINGOCOCCAL (Group B) VACCINE Aged Out No longer eligible b ased on patient's age to complete this topic MENINGOCOCCAL VACCINE Aged Out No karlie gerard eligible based on patient's age to complete this topic Advance Directives * FULL RESUSCITATION (Latest Code Status on File) Date Activated Date Inactivated Comments 04/02/2013 10:09 PM 04/06/2013 2:22 PM * FULL RESUSCITATION Date Activated Date Inactivated Comments 11/22/2012 1:54 AM 11/22/2012 3:45 AM Care Teams Stretcher Drier Operator Relationship Specialty Start Date End Date Akash Diop MD [address] [facility] [address] [place] [id number] PCP - General 05/18/20 Todd Avila MD [address] [place] [address] [facility] Medicine 05/18/20
--- OUTSIDE RECORDS SUMMARY | 2024-07-20 10:02 | XMS_ITS | Referral Summary ---
Author Organization [facility] [employer] Address [address] [place] [address] Care Team Providers Care Manager Cardiovascular Name Role Phone Akash Diop MD Primary Care Provider [phone] Todd Avila MD Unavailable Source Comments [facility],non-owned Affiliates and Associated Physician Practices is amultiple site organization consisting of ambulatory clinics and hospital sitesin [place], [place], [place] and [place]. This disclosure is being madepursuant to the Care Everywhere program and may not contain all information available regarding this patient. Last updated 18.[facility] Allergies Active Allergy Reactions Criticality Noted Date [...] skin Assessment & Plan (08/11/2020 4:17 PM VISION TEACHER): - Locations: A) right mid upper back, [...] D Immune Globulin 04/04/2013,04/04/2013 TDAP (7yrs+) 04/05/2013 Social History Tobacco Use Types Packs/Day Years [...] 04/02/2013 10:04 PM CDT Plan of Treatment Not on file Advance Directives * FULL RESUSCITATION (Latest Code Status on File) Date Activated Date Inactivated Comments 04/02/2013 10:09 PM 04/06/2013 2:22 PM * FULL RESUSCITATION Date Activated Date Inactivated Comments 11/22/2012 1:54 AM 11/22/2012 3:45 AM Care Teams Manager Cardiovascular Relationship Specialty Start Date End Date Akash Diop MD [address] [facility] [address] [place] [id number] PCP - General 05/18/20 Todd Avila MD [address] [place] [address] [facility] Medicine 05/18/20
--- OUTSIDE RECORDS SUMMARY | 2024-07-20 10:03 | XMS_ITS | Referral Summary ---
Author Organization [facility] [address] [facility] [address] Address [address] [place] [phone] Care Team Providers Care Waste Water Plant Operator Name Role Phone Singer Vibha MD, Akash Mckee Primary Care Provider Encounters Date Type Department Care Team Description 05/08/2024 Telephone [facility] ([facility]) - [facility] ENT [address] [facility] 11th [place] [address] [place] [address] Faith Ontiveros MS from Last 3 Months Allergies Active Allergy Reactions Criticality Noted Date Comments Sulfa (Sulfonamide Antibiotics) Palpitations Low 06/02/2020 Sumatriptan Other (See comments) High 09/08/2015 Chest pain Medications ALPRAZolam (XANAX) 0.25 mg tablet Take 1 tablet (0.25 mg total) by mouth daily as needed 3 Active ipratropium (ATROVENT) 21 mcg (0.03 %) nasal spray Administer 2 sprays into affected nostril(s) 2 (two) times a day 3 Active minoxidiL (LONITEN) 2.5 mg tablet 3 Active tirzepatide (Mounjaro) 2.5 mg/0.5 mL pen injector Inject 1 mL (5 mg total) under the skin once a week 2 Active dexAMETHasone (DECADRON) 1 mg tablet take 1 mg at 11pm and go to the lab the next morning at 8am to have your blood drawn. 1 tablet 4 Active Active Problems Problem Noted Date Diagnosed Date Pituitary adenoma 04/18/2023 Pituitary cyst 04/18/2023 Adenoma of right adrenal gland 04/17/2023 Periumbilical abdominal pain 11/28/2021 Hepatic cyst 02/03/2021 Neoplasm of uncertain behavior of skin Overview (04/17/2023): Last Assessment & Plan: - Locations: A) right mid upper back, B) right shoulder - Ddx: Nevi - Shave Biopsy (see procedure note) - Post-biopsy handout given - Wound care instructions reviewed - Will call patient with biopsy results. If intervention is indicated, will make arrangements at that time Varicose veins of right lower extremity 06/06/20 ZARIA (generalized anxiety disorder) 11/12/2018 Calculus of gallbladder with chronic cholecystitis without obstruction 01/17/2018 Moderate persistent asthma without complication 09/13/2017 Vitamin D deficiency 11/10/2014 Hyperlipidemia 11/08/2013 Overview (09/28/2016): HYPERLIPIDEMIA NEC/NOS Atopic rhinitis 11/08/2013 Overview (09/28/2016): ALLERGIC RHINITIS NOS Asthma 11/08/2013 Overview (09/28/2016): Asthma Polycystic ovaries 11/08/2013 Overview (09/28/2016): Polycystic Ovarian Syndrome Eczema 11/08/2013 Overview (09/28/2016): Eczema Low lying placenta without hemorrhage, antepartu m 03/03/2013 Supervision of other high ri sk pregnancies, unspecified trimester 03/03/2013 Overview (04/17/2023): Resolved Problems Problem Noted Date Diagnosed Date Resolved Date Adiposity 11/08/2013 04/17/2023 Overview (09/29/2016): OBESITY NOS Immunizations Name Administration Dates Next Due Hep A / Hep B 01/07/2020 Influenza, Unspecified 04/14/2020 Tdap 04/05/2013 Social History Tobacco Use Types Packs/Day Years Used Date Smoking Tobacco: Never Smokeless Tobacco: Never Alcohol Use Standard Drinks/Week Comments Yes 0 (1 standard drink = 0.6 oz pur e alcohol) AUDIT-C Answer Date Recorded Q1: How often do you have a drink containing alcohol? Never 10/17/2023 Q2: How many drinks containi ng alcohol do you have on a typical day when you are drinking? Patient does not drink Q3: How often do you have si x or more drinks on one occasion? 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 Gender Identity Not on file Sexual Orientation Not on file Last Filed Vital Signs Vital Sign Reading Time Taken Comments Blood Pressure 174/91 10/17/2023 3:47 PM CDT Pulse 68 10/17/2023 3:47 PM CDT Temperature - - Respiratory Rate - - Oxygen Saturation - - Inhaled Oxygen Concentration - - Weight 67.4 kg (148 lb 9.6 oz) 10/17/2023 3:47 P M CDT Height 170.2 cm (5' 7 ) 10/17/2023 3:47 PM CDT Body Mass Index 23.27 10/17/2023 3:47 PM CDT Plan of Treatment Not on file Insurance [facility] HMO/PPO Address: [facility] [address] [place] [address] Care Teams Waste Water Plant Operator Relationship Specialty [place] [address] [facility] [address] [place] [phone] PCP - General Family Medicine 05/27/20
--- OUTSIDE RECORDS SUMMARY | 2024-07-20 10:03 | XMS_ITS | Encounter Summary ---
Author Organization [employer] Address 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 Gender Identity Not on file Sexual Orientation Not on file documented as of this encounter Plan of Treatment Not on file documented as of this encounter Visit Diagnoses Not on filedocumented in this encounter Additional Health Concerns Infection Onset Date Last Indicated Resolved Time R/O COVID-19 01/07/2020 01/07/2020 01/09/2020 2:03 AM CDT R/O COVID-19 04/21/2020 04/21/2020 04/23/2020 4:16 AM CDT R/O COVID-19 06/29/2020 06/29/2020 06/30/2020 6:38 AM TECHNICAL INFORMATION SPECIALIST COVID-19 06/29/2020 06/29/2020 07/29/2020 1:16 AM TECHNICAL INFORMATION SPECIALIST documented as of this encounter Care Teams Turntable Operator Relationship Specialty [place] [address] [phone] PCP - General Family Practice 08/20/23 documented as of this encounter
--- OUTSIDE RECORDS SUMMARY | 2024-07-20 10:03 | XMS_ITS | Encounter Summary ---
Author Organization [employer] Address 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
--- OUTSIDE RECORDS SUMMARY | 2024-07-20 10:03 | XMS_ITS | Clinical Summary ---
Author Organization [facility] [address] Address [address] [place] [phone] Care Team Providers Care Bonding Machine Setter Name Role Phone Singer Vibha MD, Akash Mckee Primary Care Provider Allergies Active Allergy Reactions Criticality Noted Date [...] 02/03/2021 Neoplasm of uncertain behavior of skin 1 Overview (04/17/2023): Last Assessment & Plan: - [...] Adiposity 11/08/2013 04/17/2023 Overview (09/29/2016): OBESITY NOS Encounters Date Type Department Care Team Description 05/08/2024 Telephone [facility] [address] [facility] [address] [facility] 11th [place] [address] [place] [address] Faith Ontiveros MS from Last 3 Months Immunizations Name Administration Dates Next Due Hep A / Hep B 01/07/2020 Influenza, Unspecified 04/14/2020 Tdap 04/05/2013 Medical History Medical History Date Comments Hx Other Medical No surgical His tory Family History Medical History Relation Name Comments Other Father 2 HIV, Homosexual ; Other Mother 2 cholesteatoma, left; Other Mother's Sister 2 cholesteat farrukh; Relation Name Status Comments Father 1 Alive Father 2 Mother 1 Alive Mother 2 Mother's Sister 1 Alive Mother's Sister 2 Social History Tobacco Use Types Packs/Day Years [...] on file 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 Gender Identity Not on file Sexual Orientation Not on file Obstetrics History Last Filed Vital Signs Vital Sign Reading [...] 10/17/2023 3:47 PM CDT Plan of Treatment Health Maintenance Due Date Last Done Comments Cervical Cancer Screening 1976 Colon Cancer Screening-Colonoscopy 1976 Depression Screening 1976 Hepatitis C Screening 1976 Pneumococcal vaccine <65 (1 of 2 - PCV) 1982 Regular Well Visit/Exam 18-64 1994 DTaP/Tdap/Td Vaccine (2 - Td or Tdap) 04/05/2023 04/05/2013 Covid-19 Vaccine (3 - 2023-2 5 season) 2024 10/09/2020, 09/17/2020 Influenza Vaccine (#1) 2024 04/14/2020 Breast Cancer Screening-Mammogram 04/20/2024 04/20/2023, 04/20/2023, 03/21/2022, Additional history exists Insurance [facility] Care Teams Bonding Machine Setter Relationship Specialty [place] [address] [facility] [address] [place] [phone] PCP - General Family Medicine 05/27/20
--- OUTSIDE RECORDS SUMMARY | 2024-07-20 10:03 | XMS_ITS | Clinical Summary ---
Author Organization [facility] Address [address] [place] [address] Phone Care Team Providers Care Bearingizer Name Role Phone Manasa Heredia DO Primary Care Provider [phone] Allergies Active Allergy Reactions Criticality Noted Date Comments Sulfa (Sulfonamide Antibiotics) Hives High 01/07/2020 Sumatriptan Other (See Comments) High 09/08/2015 Chest pain Medications Mounjaro 2.5 mg/0.5 mL Pen Injector 01/20/2022 Active minoxidiL (LONITEN) 2.5 mg tablet Take 2.5 mg by mouth daily. 07/17/2023 Active pramoxine-zinc acetate (Calamine Clear) 1-0.1 % Lotion Apply to affected area 4 times daily as needed for Discomfort. 10/16/2023 Active melatonin 5 mg tablet, IR & ER, biphasic Take 5 mg by mouth daily at bedtime. 10/19/2023 Active predniSONE (DELTASONE) 10 mg tablet Take 4 pills daily for 4 days, 3 pills for 3 days, 2 pills for 2 days then 1 pill daily for 1 day 30 Tablet 12/28/2023 Active ALPRAZolam (XANAX) 0.25 mg tabletIndicatio ns:Situational anxiety TAKE 1 TABLET(0.25 MG) BY MOUTH EVERY DAY NEEDED FOR ANXIETY 30 Tablet 02/21/2024 Active Active Problems Patient Care Coordination No te Formatting of this note migh t be different from the original. Dr. Herber Alicia [facility] [phone] Problem Noted Date Diagnosed Date Adrenal adenoma, right 10/18/2023 Pituitary cyst 10/18/2023 Periumbilical abdominal pain 11/28/2021 Hepatic cyst 02/03/2021 Hyperlipidemia LDL goal <130 06/22/2020 Varicose veins of right lower extremity with marielos n 02/24/2020 ZARIA (generalized anxiety disorder) 11/12/2018 Calculus of gallbladder with chronic cholecystitis without obstruction 01/17/2018 Moderate persistent asthma without complication 09/13/2017 Ovarian cyst, left 10/27/2015 Vitamin D deficiency 11/10/2014 PCOS (polycystic ovarian syndrome) 09/30/2014 Resolved Problems Problem Noted Date Diagnosed Date Resolved Date Moderate persistent asthma w ith acute exacerbation 07/16/2017 09/13/2017 Ovarian cyst, right 09/30/2014 11/18/19 16 Abdominal pain, epigastric 03/13/2012 0 09/30/2014 RUQ abdominal pain 03/13/2012 5 Encounters Date Type Department Care Team Description 07/16/2024 External Device Data [facility] ABSTRACTION Provider, Abstract 07/16/2024 External Device Data [facility] ABSTRACTION Provider, Abstract 04/23/2024 External Device Data [facility] ABSTRACTION Provider, Abstract 04/22/2024 External Device Data [facility] ABSTRACTION Provider, Abstract from Last 3 Months Immunizations Immunization Administration Dates Next Due (ADACEL/BOOSTRIX)(10 YR UP) TDAP VACCINE, 0.5ML, IM 04/05/2013 (PFIZER)(12 YR UP) COVID-19 VACCINE - EMERGENCY USE AUTHORIZATION, MRNA, [id number]) 30 MCG/0.3 ML IM SUSP 10/09/2020,09/17/2020 (TWINRIX)(18 YRS UP) HEPATIT IS A AND HEPATITIS B VACCINE ADULT, 1 ML, IM 01/07/2020 Influenza, Unspecified Formulation 04/14/2020 Rho (D) IMMUNE GLOBULIN 1,500 UNIT(300 MCG) INJE CTION 04/04/2013 Family History Medical History Relation Name Comments Cancer Father Marquez Bladder Stroke Father Marquez Colon Cancer Maternal Aunt Healthy Maternal Aunt Other Mother Theresa Endometriosis, Fibroids Healthy Son Breast Cancer Neg Hx Ovarian Cancer Neg Hx Relation Name Status Comments Father Marquez Alive Maternal Aunt Alive Mother Theresa Alive Son Alive Social History Tobacco Use Types Packs/Day Years Used Date Smoking Tobacco: Never Smokeless Tobacco: Never Tobacco Cessation:Counseling Given: Not Answered Alcohol Use Standard Drinks/Week Comments Yes 1 (1 standard drink = 0.6 oz pur e alcohol) Rarely Feeling Safe Answer Date Recorded Are you in a relationship wi th someone who hurts you emotionally and/or physically? 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 Gender Identity Not on file Sexual Orientation Not on file Last Filed Vital Signs Vital Sign Reading Time Taken Comments Blood Pressure 133/87 12/28/2023 2:34 PM CDT Pulse 93 12/28/2023 2:34 PM CDT Temperature 37 ??C (98.6 ??F) 12/28/2023 2:34 PM CDT Respiratory Rate 18 12/28/2023 2:34 PM CDT Oxygen Saturation 98% 12/28/2023 2:34 PM CDT Inhaled Oxygen Concentration - - Weight 66.2 kg (146 lb) 12/28/2023 2:34 PM CDT Height 170.2 cm (5' 7 ) 12/28/2023 2:34 PM CDT Body Mass Index 22.87 12/28/2023 2:34 PM CDT Plan of Treatment Health Maintenance Due Date Last Done Comments PNEUMOCOCCAL VACCINE 0-64 YE ARS (1 of 2 - PCV) 12/05/1995 HEPATITIS B VACCINES (2 of 3 - Hep B Twinrix 3-dose series) 02/04/2020 01/07/2020 FIT-DNA Q 3 years 2021 FIT/FOBT Q 1 year 2021 Flex Sig/CT Colonography Q 5 years 2021 DTAP/TDAP/TD VACCINES (2 - T d or Tdap) 04/05/2023 04/05/2013 INFLUENZA VACCINE (#1) 2024 COVID-19 Vaccine (3 - 2023-2 5 season) 2024 10/09/2020, 09/17/2020 BREAST CANCER SCREENING 04/20/2024 04/20/20 23, 03/21/2022, 12/13/2020, Additional history exists Preventative Visit- Commercial 06/25/2024 0 10/19/2023, 04/26/2023, 09/19/2022, Additional history exists CERVICAL CANCER SCREENING 04/26/20262022, 02/03/2022, 12/05/2017, Additional history exists COLORECTAL SCREENING 12/27/2032 12/27/2022, 12/27/2022, 12/27/2022 Colorectal Cancer Screening 12/27/2032 Medical Devices Implanted Type Area Financial Institution Vice President Device Identifier Shelf Expiration Date Model / Serial / Lot Barrier Gelfilm [id number] [id number] - [id number] Implanted:Qt y: 1 on 10/29/2015 by Flex Brooks MD at [facility] Adhesion Barrier N/A: Nose PFIZER- PHARM 07/25/2017 [id number] / / [id number] Barrier Gelfilm [id number] 7-03 - [id number] Implanted:Qt y: 1 on 10/29/2015 by Flex Brooks MD at [facility] Adhesion Barrier N/A: Nose PFIZER- PHARM 03/24/2017 [id number] / / [id number] Sealant Hemaflex [id number] - [id number] Implanted:Qt y: 1 on 10/29/2015 by Flex Brooks MD at [facility] Biological N/A: Nose [employer] 05/22/2018 [id number] / / [id number] Clip Ligating Horizon Red [id number] - Csc - [id number] Implanted:Qt y: 1 on 08/26/2021 by Herber Alicia MD at [facility] Right: Leg TELE[employer]LEX [employer] 04/03/2026 [id number] / / [id number] Clip Ligating Horizon Med Ti [id number] - Csc - [id number] Implanted:Qt y: 1 on 08/26/2021 by Herber Alicia MD at [facility] Right: Leg TELEFLEX- WECK CLOSURE SYS 12/08/2025 [id number] / / [id number] Procedures Procedure Name Priority Date/Time Associated Diagnosis Comments CERV/VAG CYTO AGE BASED SCREEN PAP Routine 04/26/2023 3:15 PM CDT Well woman exam with routine gynecological exam Screening for cervical cancer ASCUS with positive high risk HPV cervical MAMMO 3D YUNG SCREEN BILAT W OR WO CAD Routine 04/20/2023 1:52 PM CDT Visit for screening mammogram COLONOSCOPY REPORT 12/27/2022 9: 51 AM CDT from Last 3 Months or Most Recently Relevant to Health Maintenance Results * (ABNORMAL) CERV/VAG CYTO AGE BASED SCREEN PAP (04/26/2023 3:15 PM CDT) COMMENT (PAP): [facility] Comment: This order for age-based cervical cancer and STI screening follows ACOG guidelines(PB 168, 140, BMR704). See individual assays for performing site location. CLINICAL INFORMATION [facility] Comment:None given LAST MENSTRUAL PERIOD [facility] Comment:NONE GIVEN PREV PAP: [facility] Comment:NONE GIVEN PREV BX: [facility] Comment:NONE GIVEN SOURCE [facility] Comment:Endocervix ADEQUACY: [facility] Comment: Satisfactory for evaluation. Endocervical/transformation zone component present. Age and/or menstrual status not provided PAP INTERP [facility] Comment: Cytology Results: Negative for intraepithelial lesion or malignancy. COMMENT (PAP TEST) [facility] Comment: This Pap test has been evaluated with computer assisted technology. HYDROBLASTER: Newton Beck Comment: KMS, CT(ASCP) CT Screening location: [place] [address] [place] [address] REVIEW HYDROBLASTER: Jeannine Beck Comment: LMT, CT(ASCP) CT screening location: [place] [address] [place] [address] [address] [facility] [place] Beck Comment: EXPLANATORY NOTE: The Pap is a screening test for cervical cancer. It is not a diagnostic test and is subject to false negative and false positive results. It is most reliable when a satisfactory sample, regularly obtained, is submitted with relevant clinical findings and history, and when the Pap result is evaluated along with historic and current clinical information. HPV E6/E7 Detected(A) Not Detected [facility] Comment: Methodology: Pumper Helper-Mediated Amplification This assay detects E6/E7 viral messenger RNA (mRNA) from 14 high-risk HPV types (16,18,31,33,35,39,45,51,52,56,58,59,66,68). Cervical sources are required for HPV testing. If a vaginal source from a patient who has had a total hysterectomy with removal of cervix was submitted, please contact the testing laboratory for alternative testing options. For additional information, please refer to http://education.MyRoll/faq/YFG262z0 (This link if provided for information/ educational purposes only.) HPV 16 RNA NOT DETECTED NOT DETECTED [facility] HPV 18/45 RNA NOT DETECTED NOT DETECTED [facility] Comment: Methodology: Pumper Helper Mediated Amplification Cervical sources are required for HPV testing. If a vaginal source from a patient who has had a total hysterectomy with removal of cervix was submitted, please contact the testing laboratory for alternative testing options. [facility] at[facility] [address] [place], [place] ??[address] Fausto Cárdenas MD SL Genital SWAB OF ENDOCERVIX / Unknown 04/26/2023 3:15 PM CDT 04/27/2023 2:02 AM CDT Radha Lee MD PATHOLOGY/CYTOLOGY ORDERABLES [facility] [phone] [facility] [address] [place] [address] * MAMMO SCRN BILAT 3D YUNG W OR WO CAD (04/20/2023 1:52 PM CDT) Anatomical Region Laterality Modality Breast Bilateral Mammography 04/20/2023 1:52 PM CDT Impressions 04/20/2023 5:40 PM CDT IMPRESSION: No mammographic evidence of malignancy. ?? OVERALL FINAL ASSESSMENT: BI-RADS Category 1: Negative mammogram. RECOMMENDATION: Bilateral screening mammogram in one year. DICTATION LOCATION: [facility] Narrative 04/20/2023 5:40 PM CDT BILATERAL SCREENING DIGITAL MAMMOGRAM WITH 3D TOMOSYNTHESIS AND CAD DATE: 04/20/2023 1:52 PM COMPARISON: Multiple prior mammograms, dating back to 12/06/2016 and most recently 03/21/2022. HISTORY: Screening mammogram. ?? TECHNIQUE: Low-dose full-field digital breast tomosynthesis examination was performed with 2D and 3D acquisitions. Examination is read in conjunction with computer aided detection. BREAST COMPOSITION: There are scattered areas of fibroglandular density. FINDINGS: There is no suspicious mass, clustered microcalcification, or architectural distortion in either breast on 2D or 3D images. There has been no change in the mammographic appearance compared with the prior study. Procedure Note Fady Rodriguez MD - 04/20/2023 BILATERAL SCREENING DIGITAL MAMMOGRAM WITH 3D TOMOSYNTHESIS AND CAD DATE: 04/20/2023 1:52 PM COMPARISON: Multiple prior mammograms, dating back to 12/06/2016 and most recently 03/21/2022. HISTORY: Screening mammogram. TECHNIQUE: Low-dose full-field digital breast tomosynthesis examination was performed with 2D and 3D acquisitions. Examination is read in conjunction with computer aided detection. BREAST COMPOSITION: There are scattered areas of fibroglandular density. FINDINGS: There is no suspicious mass, clustered microcalcification, or architectural distortion in either breast on 2D or 3D images. There has been no change in the mammographic appearance compared with the prior study. IMPRESSION: No mammographic evidence of malignancy. OVERALL FINAL ASSESSMENT: BI-RADS Category 1: Negative mammogram. RECOMMENDATION: Bilateral screening mammogram in one year. DICTATION LOCATION: [facility] Radha Lee MD MAMMO ORDERABLES Final Result * COLONOSCOPY REPORT (12/27/2022 9:51 AM CDT) Narrative Procedure Note Cassy Casanova MD - 12/27/2022 9:51 AM CDT [facility] Endoscopy Patient Name: Elizabeth Cardona Procedure Date: 12/27/2022 Date of : 1975 Attending MD: Cassy Casanova MD, Procedure: Colonoscopy Indications: Screening for colorectal malignant neoplasm, This is the patient's first colonoscopy Providers: Cassy Casanova MD Referring MD: Akash Avelar MD Medicines: Propofol per Anesthesia Complications: No immediate complications. Procedure: Informed consent was obtained for the procedure, including moderate sedation after risks were discussed. Based on the pre-procedure assessment, including review of the patient's medical history, medications, allergies, and review of systems, the patient was deemed to be an appropriate candidate for sedation. A timeout was performed. Continuous ECG monitoring, pulse oximetry, blood pressure monitoring, and direct observation were performed. The Colonoscope was introduced through the anus and advanced to 10 cm into the ileum. The colonoscopy was performed without difficulty. The patient tolerated the procedure well. The quality of the bowel preparation was excellent. Estimated Blood Loss: Estimated blood loss: none. Findings: Hemorrhoids were found on perianal exam. The terminal ileum appeared normal. Non-bleeding internal hemorrhoids were found during retroflexion. The hemorrhoids were mild. The exam was otherwise without abnormality on direct and retroflexion views. Impression: - Hemorrhoids found on perianal exam. - The examined portion of the ileum was normal. - Non-bleeding internal hemorrhoids. - The examination was otherwise normal on direct and retroflexion views. - No specimens collected. Recommendation: - Repeat colonoscopy in 10 years for screening purposes. Cassy Casanova MD 12/27/2022 9:51:16 AM This report has been signed electronically. Number of Addenda: [phone] [facility]; [place] [address] Cassy Casanova MD GI PROCEDURE ORDERABLES Final Result from Last 3 Months or Most Recently Relevant to Health Maintenance Insurance [facility] MEDICAID BCBS BLUE OPTIONS [facility] MEDICAID BLUE CROSS AND BLUE SHIELD RX INFOCROSSING Medicaid RX [employer] Commercial [address] [place] [id number] Advance Directives For more information, please contact: [phone] * Full Code (Latest Code Status on File) Date Activated Date Inactivated Comments 12/27/2022 9:05 AM 12/27/2022 12:22 PM * Full Code Date Activated Date Inactivated Comments 01/25/2018 10:29 AM 01/25/2018 1:07 PM * Full Code Date Activated Date Inactivated Comments 10/29/2015 8:54 AM 10/29/2015 7:27 PM * Full Code Date Activated Date Inactivated Comments 10/29/2015 6:18 AM 10/29/2015 8:54 AM * Full Code Date Activated Date Inactivated Comments 03/29/2012 10:15 AM 03/29/2012 1:54 PM Care Teams Bearingizer Relationship Specialty [place] [address] [address] PCP - General Family Practice 08/20/23
--- OUTSIDE RECORDS SUMMARY | 2024-07-20 10:03 | XMS_ITS | Encounter Summary ---
Author Organization [employer] Address 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
--- NOTE | 2024-07-20 10:40 | ED.GENADULT ---
HPI - General Adult General Chief complaint: Extremity Injury, Upper Stated complaint: fell iceannetta Salazar arm Time Seen by Provider: 07/20/24 09:50 History of Present Illness HPI narrative: This is a 48-year-old female presenting after a fall. She was ice skating yesterday when she slipped and had a FOOSH injury. She had pain in her elbow. She has seemed that it would get better overnight however he got progressively worse and she is now having pain fully extending and flexing her elbow. No loss of motor sensory function hand. No other injuries. Related Data Allergies Allergy/AdvReac Type Severity Reaction Status Date / Time Sulfa (Sulfonamide AdvReac Chest Pain Verified 07/20/24 07:30 Antibiotics) Exam Narrative: APPEARANCE: No apparent distress. Head: atraumatic. EYES: EOMI, NOSE: Atraumatic NECK: Trachea midline RESPIRATORY: No increased rate of breathing CARDIOVASCULAR: RRR, ABDOMINAL: Non-distended MUSCULOSKELETAl: Focal exam of left upper extremity revealed normal radial ulnar and median function and hand. Pulses intact cap refill is less than 2 seconds. Focal exam the elbow showed pain with straightening and bending of the elbow. There is tenderness over the radial head. Mild swelling. No bruising. NEURO: Alert. Moving 4/4 extremities SKIN:: Warm, dry. Normal color PSYCHIATRIC: Normal affect Course Vital Signs Vital signs: Vital Signs Temperature 97.4 F L 07/20/24 07:32 Pulse Rate 86 07/20/24 07:32 Respiratory Rate 15 07/20/24 07:32 Blood Pressure 158/94 H 07/20/24 07:32 Pulse Oximetry 100 07/20/24 07:32 Oxygen Delivery Room Air 07/20/24 07:32 Temperature 97.4 F L 07/20/24 07:32 Pulse Rate 86 07/20/24 07:32 Respiratory Rate 15 07/20/24 07:32 Blood Pressure 158/94 H 07/20/24 07:32 Pulse Oximetry 100 07/20/24 07:32 Oxygen Delivery Room Air 07/20/24 07:32 Medical Decision Making [facility] Narrative Medical decision making narrative: -Course: 48-year-old female presenting with elbow pain after a FOOSH injury. X-ray concerning for occult radial head fracture. Patient does have tenderness over the radial head. Neurovascularly arm is intact. Patient be placed in a sling with close follow-up with orthopedics. Given return precautions. -DDX includes but is not limited to: Radial head fracture, proximal humerus fracture -Shared decision making / Disposition: Discharge -RX Motrin, Tylenol Vital Signs Vital Signs: Vital Signs Temperature 97.4 F L 07/20/24 07:32 Pulse Rate 86 07/20/24 07:32 Respiratory Rate 15 07/20/24 07:32 Blood Pressure 158/94 H 07/20/24 07:32 Pulse Oximetry 100 07/20/24 07:32 Oxygen Delivery Room Air 07/20/24 07:32 Temperature 97.4 F L 07/20/24 07:32 Pulse Rate 86 07/20/24 07:32 Respiratory Rate 15 07/20/24 07:32 Blood Pressure 158/94 H 07/20/24 07:32 Pulse Oximetry 100 07/20/24 07:32 Oxygen Delivery Room Air 07/20/24 07:32 Discharge Plan Discharge Clinical Impression: Fracture of radial head, closed Patient Disposition: Home, Self-Care Condition: Stable Instructions: Antibiotic Form, Arm Fracture in Adults (DC), How to Use a Sling (ED) Additional Instructions: Using emergency department after a fall. He over fracture of the radial head. Please use Motrin and Tylenol for pain. Use your sling until you are evaluated by Orthopedic surgery. Please call orthopedics 1st thing on Sunday schedule follow-up. You develop weakness your arm or severe pain when you return ED re-evaluation. Patient Language: Guinean Prescriptions: New ibuprofen 800 mg tablet 800 mg PO TID PRN (Reason: pain) 7 Days Qty: 21 0RF acetaminophen 500 mg tablet 1,000 mg PO TID PRN (Reason: marielos) 7 Days Qty: 42 0RF Follow-up/Referrals: Paul Frank MD [Physician] - 2 Days (radial head fx) PHYSICIAN,DIRECTOR CONTENT MARKETING [Primary Care Provider] -
[2024-07-20] MEDS: ACETAMINOPHEN 500 MG TABLET 1000 MG PO (11:12)
[2024-07-20] MEDS: methocarbamoL 750 MG TABLET 1500 MG PO (11:13)
[2024-07-20] MEDS: KETOROLAC 30 MG/ML VIAL (*BKC) IM (11:15)
[2024-07-20] MEDS: oxyCODONE HCL (*CRX) 5 MG TAB IR PO (11:19)
[2024-07-20] MEDS: diazePAM INJ (*CRX) 10 MG/2 ML SYRINGE 5 MG IM (12:03)
== END 2024-07-20 12:13 | disposition home or self-care (01) ==
PROVIDERS: Emergency Provider Emergency Medicine
DX: S52.122A Displaced fracture of head of left radius, initial encounter for closed fracture (principal); V00.211A Fall from ice-skates, initial encounter; Y93.21 Activity, ice skating
CPT/HCPCS: 73080; 73110; 96372; 99284; A4565; A9270; J1885; J3360